=== PATIENT | male | born 1990 | race Caucasian/White ===

== ENCOUNTER 2024-08-27 14:29 | Emergency (ER) | payer OTHER ==
[~2024-08-27] VITALS: Ht 167.6 cm; Wt 100.0 kg
[2024-08-27 15:59] VITALS: TEMP 98.4
[2024-08-27] MEDS: LIDOCAINE 1% 10 ML VIAL SQ ONE (17:38)
[2024-08-27] MEDS: AMOX TR/POT CLAV 875 MG/125 MG TABLET PO ONE (17:38)
[2024-08-27] MEDS: PERTUSS(ACELL),DIPH,TET/PF 0.5 ML SYRINGE [ADULT] IM. ONE (17:39)
[2024-08-27 18:24] VITALS: BP 135/61; PULSE 70; RESP 20; O2SAT 98
== END 2024-08-27 18:25 | disposition home or self-care (01) ==
LOC: EMS 14:29
DX: S61.411A Laceration without foreign body of right hand, initial encounter (principal); F12.90 Cannabis use, unspecified, uncomplicated; F15.90 Other stimulant use, unspecified, uncomplicated; F17.210 Nicotine dependence, cigarettes, uncomplicated; Z90.49 Acquired absence of other specified parts of digestive tract; W45.8XXA Other foreign body or object entering through skin, initial encounter; Y93.89 Activity, other specified; Y92.89 Other specified places as the place of occurrence of the external cause; Y99.8 Other external cause status
CPT/HCPCS: 99283; 90715; 90471; 12001; J3490